=== PATIENT | female | born 1980 | race Caucasian/White ===

== ENCOUNTER 2023-07-24 13:24 | Emergency (ER) | payer OTHER ==
[~2023-07-24] VITALS: Ht 160 cm; Wt 70.3 kg
[2023-07-24 13:44] VITALS: BP 108/63; PULSE 67; RESP 15; TEMP 97.9; O2SAT 100
[2023-07-24] MEDS ORDERED: CYCLOBENZAPRINE 10 MG TAB PO ONE (14:15)
[2023-07-24] MEDS ORDERED: LIDOCAINE/PRILOCAINE 2.5% 5 GM TUBE TP ONE (14:15)
[2023-07-24] MEDS ORDERED: KETOROLAC 30 MG/ML VIAL IM ONE (14:15)
[2023-07-24] MEDS ORDERED: oxyCODONE/APAP 5/325 MG 1 TAB TAB PO ONE (15:30)
[2023-07-24] MEDS ORDERED: OXYC5TAB4 PO ×2 (16:38→16:46)
[2023-07-24] MEDS ORDERED: ACET-2619 PO (16:39)
[2023-07-24] MEDS ORDERED: IBUP-1842 PO (16:39)
[2023-07-24 17:03] VITALS: BP 112/63; PULSE 67; RESP 16; TEMP 98; O2SAT 100
== END 2023-07-24 17:03 | disposition home or self-care (01) ==
LOC: MED 13:24
DX: M54.50 Low back pain, unspecified (principal); R10.9 Unspecified abdominal pain; Z79.899 Other long term (current) drug therapy; Z79.1 Long term (current) use of non-steroidal anti-inflammatories (NSAID)
CPT/HCPCS: 96372; 99284; J1885